=== PATIENT | male | born 1975 | race Caucasian/White ===

== ENCOUNTER 2019-01-05 00:43 | Emergency (ER) | payer SELFPAY ==
[~2019-01-05] VITALS: Ht 188 cm; Wt 126.0 kg
[2019-01-05] MEDS ORDERED: ONDANSETRON HCL 4MG/2ML INJ IV STA (01:34)
[2019-01-05] MEDS ORDERED: MORPHINE SULFATE 4 MG/ML CPJ (NOT FOR IM USE) IV ONE ×2 (01:45→03:00)
[2019-01-05 01:50] LABS: BASOPHILS % 0.5 % (0.0-2.0); EOSINOPHILS % 3.1 % (0.0-5.0); HEMATOCRIT. 41.2 % (42.0-52.0); HEMOGLOBIN. 14.1 g/dL (14.0-18.0); LYMPHOCYTES % 22.2 % (20.0-50.0); MEAN CORPUSCULAR HEMOGLOBIN 29.7 pg (28.0-32.0); MEAN CORPUSCULAR VOLUME 86.5 fL (80.0-94.0); MEAN PLATELET VOLUME 8.1 fl (7.4-10.4); NEUTROPHILS % 69.2 % (40.0-76.0); PLATELET 188 x1000/uL (130-400); RED BLOOD CELL COUNT 4.76 mill/uL (4.7-6.1); RED CELL DISTRIBUTION WIDTH 14.2 % (11.6-14.6)
[2019-01-05 01:58] LABS: CHLORIDE 105 mEq/L (98-107)
[2019-01-05 01:59] LABS: INR 1.1; PARTIAL THROMBOPLASTIN TIME 24.7 sec (23.4-31.0); PROTHROMBIN TIME 11.4 sec (9.6-11.0)
[2019-01-05] MEDS ORDERED: IOHEXOL-300 100 ML BOTTLE ONE (04:24)
[2019-01-05 05:09] LABS: HEMATOCRIT 40.7 % (42.0-52.0); MEAN CORPUSCULAR HEMOGLOBIN 29.5 pg (28.0-32.0); MEAN CORPUSCULAR VOLUME 85.6 fL (80.0-94.0); PLATELET 192 x1000/uL (130-400); RED BLOOD CELL COUNT 4.76 mill/uL (4.7-6.1); RED CELL DISTRIBUTION WIDTH 14.2 % (11.6-14.6)
[2019-01-05 07:18] VITALS: BP 132/88
== END 2019-01-05 07:20 | disposition home or self-care (01) ==
LOC: ER 00:43
DX: S20.219A Contusion of unspecified front wall of thorax, initial encounter (principal); V43.52XA Car driver injured in collision with other type car in traffic accident, initial encounter; Y93.89 Activity, other specified; Y92.411 Interstate highway as the place of occurrence of the external cause; M54.5 Low back pain
CPT/HCPCS: 36415; 71260; 74177; 80053; 84484; 85025; 85027; 85610; 85730; 93005; 96374; 96375; 96376; 99284; J2270; J2405; Q9967